=== PATIENT | female | born 1955 | race Caucasian/White ===

== ENCOUNTER 2017-04-17 11:08 | Day surgery (SDC) | payer OTHER ==
[2017-04-17] MEDS ORDERED: FENTAnyl 50 MCG/ML VIAL (14:47)
[2017-04-17] MEDS ORDERED: MIDAZOLAM 1 MG/ML 2 ML INJ ×3 (14:47→14:48)
== END 2017-04-17 16:18 | disposition home or self-care (01) ==
LOC: GIL 11:08
DX: Z12.11 Encounter for screening for malignant neoplasm of colon (principal); K29.70 Gastritis, unspecified, without bleeding; K57.90 Diverticulosis of intestine, part unspecified, without perforation or abscess without bleeding; K64.4 Residual hemorrhoidal skin tags; K64.8 Other hemorrhoids
CPT/HCPCS: 43239; 87081